=== PATIENT | male | born 1960 | race Caucasian/White ===

== ENCOUNTER 2018-03-15 03:31 | Emergency (ER) | payer OTHER, MEDICARE, BC ==
[2018-03-15 04:50] LABS: ABSOLUTE LYMPHOCYTES (AUTO) 1.4 10^3/uL (0.5-4.7); ABSOLUTE MONOCYTES (AUTO) 0.3 10^3/uL (0.1-1.4); ABSOLUTE NEUT (AUTO) 4.3 10^3/uL (1.7-8.2); BASOPHILS % (AUTO) 0.5 % (0-2); EOSINOPHILS % (AUTO) 0.2 % (0-6); HEMATOCRIT 40.1 % (37.9-51.0); HEMOGLOBIN 14.1 g/dL (13.5-17.0); LYMPHOCYTES % (AUTO) 23.2 % (13-45); MEAN CORPUSCULAR HGB CONC 35.2 g/dL (32.0-36.0); MEAN CORPUSCULAR VOLUME 91 fl (80-97); MONOCYTES % (AUTO) 5.3 % (3-13); PLATELET COUNT 293 10^3/uL (150-450); RED BLOOD COUNT 4.42 10^6/uL (4.35-5.55); RED CELL DISTRIBUTION WIDTH 13.1 % (11.5-14.0); SEGMENTED NEUTROPHILS % (AUTO) 70.8 % (42-78); TOTAL CELLS COUNTED % (AUTO) 100 %; WHITE BLOOD COUNT 6.1 10^3/uL (4.0-10.5)
[2018-03-15 05:03] LABS: ACETAMINOPHEN < 10 ug/mL (10-30); ALANINE AMINOTRANSFERASE 21 U/L (21-72); ALBUMIN 4.2 g/dL (3.5-5.0); ALCOHOL < 10 mg/dL (NONE DETECTED); ALKALINE PHOSPHATASE 58 U/L (38-126); ANION GAP 14 (5-19); ASPARTATE AMINO TRANSFERASE 20 U/L (17-59); BILIRUBIN,DIRECT 0.1 mg/dL (0.0-0.4); BILIRUBIN,TOTAL 0.5 mg/dL (0.2-1.3); BLOOD UREA NITROGEN 8 mg/dL (7-20); CALCIUM 9.4 mg/dL (8.4-10.2); CARBON DIOXIDE 24 mmol/L (22-30); CHLORIDE 104 mmol/L (98-107); GLUCOSE 192 mg/dL (75-110); POTASSIUM 4.5 mmol/L (3.6-5.0); SALICYLATE < 1.0 mg/dL (2.0-20.0); SODIUM 142.4 mmol/L (137-145); TOTAL PROTEIN 7.1 g/dL (6.3-8.2)
--- NOTE | 2018-03-15 05:06 | ER Document Report ---
ED General - General Chief Complaint: Psych Problem Stated Complaint: PSYCH PROBLEM Time Seen by Provider: 03/15/18 03:42 Notes: Patient is a 57-year-old male who presents with complaint of suicidal threat. Patient got an argument with his girlfriend and then took gone out and pointed to his head. Gun was loaded. Patient says that he has had a lot of things have compounding over the years including of his parents, of his sister, and an on-and-off relationship with his girlfriend. He said he went to proposed to her and then she told him no and they got an argument. He says he followed by the [facility] and does take some medications for depression. Past Medical History - Social History Smoking Status: Unknown if Ever Smoked Frequency of alcohol use: None Drug Abuse: None Family History: Reviewed & Not Pertinent Patient has suicidal ideation: Yes Patient has homicidal ideation: No Renal/ Medical History: Denies: Hx Peritoneal Dialysis Review of Systems - Review of Systems Notes: My Normal Review Basic REVIEW OF SYSTEMS: CONSTITUTIONAL : Denies fever, chills, or sweats. Denies recent illness. RESPIRATORY: Denies cough, cold, or chest congestion. Denies shortness of breath, difficulty breathing, or wheezing. GASTROINTESTINAL: Denies abdominal pain. Denies nausea, vomiting, or diarrhea. GENITOURINARY: Denies difficulty urinating, painful urination, burning, frequency, or blood in urine. MUSCULOSKELETAL: Denies neck or back pain or joint pain or swelling. SKIN: Denies rash or skin lesions. NEUROLOGICAL: Denies altered mental status or loss of consciousness. Denies headache. Denies weakness or paralysis or loss of use of either side. Denies problems with gait or speech. Denies sensory or motor loss. PSYCHIATRIC: Depression and threatened suicide.. ALL OTHER SYSTEMS REVIEWED AND NEGATIVE. Physical Exam - Vital signs Vitals: Temp Pulse Resp BP Pulse Ox 99.6 F 71 18 147/92 H 96 03/15/18 03:37 03/15/18 03:37 03/15/18 03:37 03/15/18 03:37 03/15/18 03:37 - Notes Notes: General Appearance: Well nourished, alert, cooperative, no acute distress, no obvious discomfort. Vitals: reviewed, See vital signs table. Head: no swelling or tenderness to the head Eyes: PERRL, EOMI, Conjuctiva clear Mouth: No decreasd moisture Lungs: No wheezing, No rales, No rhonci, No accessory muscle use, good air exchange bilaterally. Heart: Normal rate, Regular rythm, No murmur, no rub Abdomen: Normal BS, soft, No rigidity, No abdominal tenderness, No guarding, no rebound, no abdominal masses, no organomegaly Extremities: strength 5/5 in all extremities, good pulses in all extremities, no swelling or tenderness in the extremities, no edema. Skin: warm, dry, appropriate color, no rash Neuro: speech clear, oriented x 3, normal affect, responds appropriately to questions. Course - Re-evaluation Re-evalutation: 03/15/18 05:49 Patient is medically stable for psychiatric evaluation. The placement of his paperwork. Patient was very concerned because he takes care of his mother who is demented and now she is home alone. Charge nurse, Melody Perez, did call and speak with Adult Protective Services who will co-make sure that the patient' s mother is safe and being cared for. Dictation of this chart was performed using voice recognition software; therefore, there may be some unintended grammatical errors. - Vital Signs Vital signs: Temp Pulse Resp BP Pulse Ox 99.6 F 71 18 147/92 H 96 03/15/18 03:37 03/15/18 03:37 03/15/18 03:37 03/15/18 03:37 03/15/18 03:37 - Laboratory Result Diagrams: 03/15/18 04:05 03/15/18 04:05 Laboratory results interpreted by me: 03/15/18 03/15/18 04:05 04:05 Glucose 192 H Urine Glucose (UA) >=1000 H Urine Ketones 25 H Salicylates < 1.0 L Acetaminophen < 10 L - EKG Interpretation by Me Additional EKG results interpreted by me: 03/15/18 05:06 EKG is reviewed and interpreted by me. EKG shows sinus rhythm with a rate of [address] segment elevation or depression. No ischemic T wave inversions. MD interval, QRS duration, QTc intervals are within normal range. No old EKG available for comparison. Discharge - Discharge Referrals: YURIDIA FALCON MD [Primary Care Provider] - Follow up as needed
[2018-03-15 05:24] LABS: APPEARANCE,URINE CLEAR; BILIRUBIN,URINE NEGATIVE (NEGATIVE); COLOR,URINE YELLOW; KETONES,URINE 25 mg/dL (NEGATIVE); LEUKOCYTE ESTERASE,URINE NEGATIVE (NEGATIVE); NITRITE,URINE NEGATIVE (NEGATIVE); PROTEIN,URINE NEGATIVE (NEGATIVE); UROBILINOGEN,URINE NEGATIVE mg/dL (<2.0)
[2018-03-15 05:25] LABS: GLUCOSE, URINE >=1000 mg/dL (NEGATIVE); URINE SPECIFIC GRAVITY 1.027
[2018-03-15 05:45] LABS: URINE AMPHETAMINES SCREEN NEGATIVE; URINE BARBITURATES SCREEN NEGATIVE; URINE BENZODIAZEPINES SCREEN NEGATIVE; URINE COCAINE SCREEN NEGATIVE; URINE MARIJUANA (THC) SCREEN NEGATIVE; URINE METHADONE SCREEN NEGATIVE; URINE PHENCYCLIDINE SCREEN NEGATIVE
--- NOTE | 2018-03-15 10:14 | EKG REPORT ---
SEVERITY:- BORDERLINE ECG - SINUS RHYTHM BORDERLINE R WAVE PROGRESSION, ANTERIOR LEADS : Confirmed by: Hollie Adame MD 15-Mar-2018 10:12:28
--- NOTE | 2018-03-15 15:53 | PSYCHOLOGICAL NOTE ---
Psych Note - Psych Note Psych Note: Reason for Consult: Suicidal ideation Consent permissions: mariola Tapia [phone] Patient is a 57-year-old male who presents with complaint of suicidal threat. Patient got an argument with his girlfriend and then took gone out and pointed to his head. Gun was loaded. Patient reports he is not doing good today. When asked if he remembers how he arrived to [facility] or what brought him to [facility] he states that he does not remember stating "they say EMS brought me but I do not remember.. I guess they say I tried to commit suicide I do not remember a whole lot." Patient continued to report that he remembers being at his girlfriend's house last night and that things were "going okay than things were not going okay." He continued to disclose that his girlfriend and him have been "on and off the last couple months good but not good." He continues close that he has been trying to care for his mother that has Alzheimer's in does get stressed from that. He then states that there is a lot of other things that are stressing him out. When asked with those other things are he states his girlfriend, his mom is being the biggest part and then "other things." Once again was asked what other things they were and he stated that his children. He states that he does not get to see his children and they will not have anything to do with him since he her mother. He continued to report that he has not seen his grandkids and 4-1/2 years which also bother him. He disclosed that his dad 6 years ago and 9 months later 1 of his sisters also . Patient then reported "I lost my family... now I lost my girlfriend... I just cannot do this... I cannot take this...it is another setback last night... I cannot do this." Patient reports that he goes to the [facility] in [place] for his mental health but is unable to recall his medications. He reports that he has diagnosis of PTSD, anxiety, and depression. Mobile crisis, Tony Thomason, reports the patient was very despondent and openly engaged with him. He reported suicidal ideation with thought out plans of overdosing or killing himself with his gun. He reports the patient held a loaded weapon to his (the patient's) head. Patient reportedly has multiple weapons in the home. Patient is alert and orientated to person, place, time and circumstance. Mood is dysphoric with flat affect. Patient reports he does not remember everything that happened but confirms he is very stressed and "cannot take it.. Cannot do this." Patient presented after making suicidal comments and holding a loaded weapon to his head. Patient denies homicidal ideation. Delusions are absent behaviors congruent with an intact reality based presentation i.e. organized and linear thought process. Eye contact was fair. Intellectual abilities appear to be within the average range. Attention and concentration are poor. Insight, judgment, impulse control are poor. 311 (F32.9) unspecified depressive disorder per history provided by patient 309.81 (F43.10) posttraumatic stress disorder per history provided by patient Impression\\plan: Patient is recommended continue under [facility]. Patient is very evasive in had difficulty opening up and talking with clinician. He does report multiple stressors with the last trigger being that of proposing to his girlfriend and she refused him. He reports "I lost my family... now I lost my girlfriend... I just cannot do this... I cannot take this...it is another setback last night... I cannot do this." Patient attempts to report that he has no memory of what happened last night. Patient will be reevaluated. Dr. Jordan was consulted and the care management of this patient; attending physician is in agreement with recommendations and disposition.
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
--- NOTE | 2018-03-16 13:17 | ER Document Report ---
Doctor's Note Notes: 03/16/18 13:16 The patient is noted to be sleeping at this time. The nurse states that he was wanting to speak with the physician about [facility]. Thom De Anda is actually working on this at this time trying to get [facility].
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
[2018-03-16 15:39] VITALS: BP 135/80
== END 2018-03-16 15:45 ==
LOC: ER 03:31
DX: R45.851 Suicidal ideations (principal); F32.9 Major depressive disorder, single episode, unspecified; F43.10 Post-traumatic stress disorder, unspecified
CPT/HCPCS: 36415; 80053; 80307; 81001; 85025; 93005; 93010; 99285